=== PATIENT | female | born 2000 | race Caucasian/White ===

== ENCOUNTER 2020-11-02 17:48 | Inpatient (IN) | payer MEDICAID ==
[~2020-11-02] VITALS: Ht 157.5 cm; Wt 55.8 kg
[2020-11-03 00:52] VITALS: BP 110/69
[2020-11-03] MEDS ORDERED: TRAZ-252 PO (01:04)
[2020-11-03] MEDS ORDERED: FLUO-191 PO (01:04)
[2020-11-03] MEDS: LORazepam 1 MG TABLET PO PRN (01:22)
[2020-11-03] MEDS: ZOLPIDEM TARTRATE 10 MG TABLET PO PRN ×2 (01:26→21:17)
[2020-11-03] MEDS ORDERED: IBUPROFEN 400 MG TABLET PO PRN (06:45)
[2020-11-03] MEDS ORDERED: NICOTINE 14 MG/24 HOUR PATCH TD PRN (06:45)
[2020-11-03] MEDS ORDERED: PETROLATUM,WHITE 28 GM JELLY TP PRN (06:45)
[2020-11-03] MEDS ORDERED: CloNIDine HCL 0.1 MG TABLET PO PRN (06:45)
[2020-11-03] MEDS ORDERED: ONDANSETRON HCL 4 MG TABLET PO PRN (06:45)
[2020-11-03] MEDS ORDERED: LOPERAMIDE HCL 2 MG CAPSULE PO PRN (06:45)
[2020-11-03] MEDS ORDERED: MAGNESIUM HYDROXIDE SUSPENSION 30 ML UDCUP PO PRN (06:45)
[2020-11-03] MEDS ORDERED: MAG HYDROX/AL HYDROX/SIMETH ES 30 ML SUSPENSION UDCUP PO PRN (06:45)
[2020-11-03] MEDS ORDERED: DOCUSATE SODIUM 100 MG CAPSULE PO PRN (06:45)
[2020-11-03] MEDS ORDERED: ALBUTEROL SULFATE HFA 90 MCG/PUFF 8 GM INHALER IH PRN (06:45)
[2020-11-03] MEDS ORDERED: ACETAMINOPHEN 325 MG TABLET PO PRN (06:45)
[2020-11-03] MEDS ORDERED: GuaiFENesin/D-METHORPHAN [SUGAR-FREE] 200-20MG/10 ML SYRUP UDCUP PO PRN (06:45)
[2020-11-03 08:00] VITALS: BP 134/88
[2020-11-03 08:20] LABS: BASOPHILS % (AUTO) 0.7 % (0.0-2.0); EOSINOPHILS % (AUTO) 0.8 % (1.0-6.0); HEMATOCRIT 41.2 % (36-46); HEMOGLOBIN 14.3 g/dL (12.0-16.0); LYMPHOCYTES # (AUTO) 2.3 K/uL (1.0-4.8); LYMPHOCYTES % (AUTO) 39.1 % (22.0-44.0); MEAN CORPUSCULAR HEMOGLOBIN 31.3 pg (26.0-34.0); MEAN CORPUSCULAR HGB CONC 34.6 G/dL (31.0-37.0); MEAN CORPUSCULAR VOLUME 90 fL (80-100); MONOCYTES # (AUTO) 0.5 K/uL (0.1-1.0); MONOCYTES % (AUTO) 7.7 % (2.0-9.0); NEUTROPHILS # (AUTO) 3.1 K/uL (1.8-7.7); NEUTROPHILS % (AUTO) 51.7 % (40.0-70.0); PLATELET COUNT (AUTO) 226 K/uL (150-450); RED BLOOD CELL COUNT(AUTO) 4.56 MIL/uL (4.00-5.20); RED CELL DISTRIBUTION WIDTH 12.6 % (11.5-14.5)
[2020-11-03 09:02] LABS: ALANINE AMINOTRANSFERASE 20 U/L (12-78); ALBUMIN 4.2 g/dL (3.4-5.0); ALKALINE PHOSPHATASE 57 U/L (46-116); ANION GAP 14 mmol/L (8-16); ASPARTATE AMINOTRANSFERASE 16 U/L (15-37); BILIRUBIN,TOTAL 1.7 mg/dL (0.1-1.0); CALCIUM, TOTAL 9.1 mg/dL (8.8-10.5); CARBON DIOXIDE 23 mmol/L (22-29); CHLORIDE 105 mmol/L (98-107); CHOL/HDL RATIO 2.6 (3.9-5.7); CHOLESTEROL 132 mg/dL (131-200); CREATININE 0.98 mg/dL (0.60-1.30); FREE T4 (FREE THYROXINE) 1.11 ng/dL (0.76-1.46); GLOMERULAR FILTR. RATE CALC > 60 mL/min (>60); GLUCOSE,RANDOM 82 mg/dL (70-110); HCG,QUANTITATIVE < 1 mIU/mL (0-6); HDL CHOLESTEROL 50 mg/dL (40-60); LDL CHOL (CALC.) 69 mg/dL (0-130); POTASSIUM 3.9 mmol/L (3.5-5.1); SODIUM SERUM 142 mmol/L (136-145); THYROID STIMULATING HORMONE 1.78 uIU/mL (0.36-3.74); TOTAL PROTEIN, SERUM 7.5 g/dL (6.4-8.2); TRIGLYCERIDES 67 mg/dL (15-150); UREA NITROGEN, BLOOD 12 mg/dL (7-18)
[2020-11-03 16:10] VITALS: BP 121/72
[2020-11-03] MEDS: TraZODone HCL 50 MG TABLET PO SCH (20:08)
[2020-11-04 06:32] VITALS: BP 103/61
[2020-11-04] MEDS: LORazepam 1 MG TABLET PO PRN ×2 (09:41→12:56)
[2020-11-04] MEDS: FLUoxetine HCL 20 MG CAPSULE PO SCH (09:41)
[2020-11-04 09:50] VITALS: BP 136/86
[2020-11-04 16:17] VITALS: BP 127/69
[2020-11-04] MEDS: TraZODone HCL 50 MG TABLET PO SCH (20:05)
[2020-11-04] MEDS: ZOLPIDEM TARTRATE 10 MG TABLET PO PRN (20:55)
[2020-11-05 00:22] VITALS: BP 124/70
[2020-11-05] MEDS: FLUoxetine HCL 20 MG CAPSULE PO SCH (08:08)
[2020-11-05 08:13] VITALS: BP 118/69
== END 2020-11-05 14:40 | disposition home or self-care (01) | DRG 754 ==
LOC: B3A 23:36
PROVIDERS: ADMIT Psychiatry & Neurology Psychiatry; ATTEND Psychiatry & Neurology Psychiatry
DX: F32.9 Major depressive disorder, single episode, unspecified (principal); R45.851 Suicidal ideations; Z91.14 Patient's other noncompliance with medication regimen; F12.90 Cannabis use, unspecified, uncomplicated; K59.00 Constipation, unspecified; E80.6 Other disorders of bilirubin metabolism; Z91.5 Personal history of self-harm; Z88.0 Allergy status to penicillin; Z88.1 Allergy status to other antibiotic agents; Z91.411 Personal history of adult psychological abuse
CPT/HCPCS: 80053; 84439; 84443; 84702; 85025